=== PATIENT | male | born 1985 ===

== ENCOUNTER → 2019-06-01 | Outpatient (CLI) | payer OTHER ==
[~2019-06-01] MED LIST: CRUTCH3 USE; NAPR500 PO; TRAM50 PO
[2019-06-02 16:31] LABS: Adenovirus F 40/41 Not Detected (NOT DETECT); Astrovirus Not Detected (NOT DETECT); Campylobacter Sp Not Detected (NOT DETECT); Cryptosporidium Not Detected (NOT DETECT); Cyclospora Cayetanensis Not Detected (NOT DETECT); E. Coli O157 Not Detected (NOT DETECT); Entamoeba Histolytica Not Detected (NOT DETECT); Enteroaggregative E. coli-EAEC Not Detected (NOT DETECT); Enteropathogenic E. coli-EPEC Not Detected (NOT DETECT); Enterotoxigenic E. coli-ETEC Not Detected (NOT DETECT); Giardia Lamblia Not Detected (NOT DETECT); Norovirus GI/GII Not Detected (NOT DETECT); Plesiomonas Shigelloides Not Detected (NOT DETECT); Rotavirus A Not Detected (NOT DETECT); Salmonella Sp Not Detected (NOT DETECT); Sapovirus Not Detected (NOT DETECT); Shiga Toxin-prod E. coli-STEC Not Detected (NOT DETECT); Shigella/Enteroin E. coli-EIEC Not Detected (NOT DETECT); Vibrio Cholerae Not Detected (NOT DETECT); Vibrio Sp Not Detected (NOT DETECT); Yersinia Enterocolitica Not Detected (NOT DETECT)
== END ==
LOC: LAB 16:30 → LAB SHORT 16:30
PROVIDERS: Nurse Practitioner Family
DX: R19.7 Diarrhea, unspecified (principal)
CPT/HCPCS: 0097U

== ENCOUNTER 2020-05-10 15:46 | Emergency (ER) | payer OTHER ==
[~2020-05-10] VITALS: Ht 185.4 cm; Wt 106.6 kg
[~2020-05-10 15:46] MED LIST changes: +ALBU90OI
[2020-05-10] MEDS ORDERED: LEVFLO500 PO (16:37)
[2020-05-10] MEDS ORDERED: OXYACE7.5T PO (16:37)
== END 2020-05-10 17:04 | disposition home or self-care (01) ==
LOC: ER 15:46
DX: N50.812 Left testicular pain (principal); Z88.6 Allergy status to analgesic agent; Z88.5 Allergy status to narcotic agent; Z87.891 Personal history of nicotine dependence
CPT/HCPCS: 76870; 99284-25

== ENCOUNTER 2020-05-26 13:04 | Day surgery (SDC) | payer OTHER ==
[~2020-05-26] VITALS: Ht 182.9 cm; Wt 114.7 kg
[~2020-05-26 13:04] MED LIST changes: +LEVFLO500 PO; +OXYACE7.5T PO
== END 2020-05-26 16:15 | disposition home or self-care (01) ==
LOC: ORSCSDS 13:04
PROVIDERS: Internal Medicine Gastroenterology
PROC: 0DBK8ZX Excision of Ascending Colon, Via Natural or Artificial Opening Endoscopic, Diagnostic (ICD-10-PCS; principal; 2020-05-26 14:45)
PROC: 0DB88ZX Excision of Small Intestine, Via Natural or Artificial Opening Endoscopic, Diagnostic (ICD-10-PCS; principal; 2020-05-26 14:45)
PROC: 0DB68ZX Excision of Stomach, Via Natural or Artificial Opening Endoscopic, Diagnostic (ICD-10-PCS; principal; 2020-05-26 14:45)
PROC: 0DBH8ZX Excision of Cecum, Via Natural or Artificial Opening Endoscopic, Diagnostic (ICD-10-PCS; principal; 2020-05-26 14:45)
DX: R19.4 Change in bowel habit (principal); K20.80 Other esophagitis without bleeding; Z87.11 Personal history of peptic ulcer disease; D12.0 Benign neoplasm of cecum; D12.2 Benign neoplasm of ascending colon; Z86.010 Personal history of colon polyps; D50.9 Iron deficiency anemia, unspecified; K29.80 Duodenitis without bleeding; J45.909 Unspecified asthma, uncomplicated; I10 Essential (primary) hypertension; Z87.891 Personal history of nicotine dependence; Z79.899 Other long term (current) drug therapy
CPT/HCPCS: 88305; 88342; J2250; J2704; J7120

== ENCOUNTER 2020-08-22 10:00 | Emergency (ER) | payer OTHER ==
[~2020-08-22] VITALS: Ht 182.9 cm; Wt 117.9 kg
== END 2020-08-22 11:57 | disposition home or self-care (01) ==
LOC: ER 10:00
DX: F41.9 Anxiety disorder, unspecified (principal); Z88.6 Allergy status to analgesic agent; Z88.5 Allergy status to narcotic agent
CPT/HCPCS: 36415; 93005; 93010; 99283; A9270